=== PATIENT | male | born 1970 | race Caucasian/White ===

== ENCOUNTER 2017-06-28 13:17 | Inpatient (IN) | payer BC ==
[2017-06-28] MEDS: SODIUM CHLORIDE 0.9% 1L BAG IV* (16:31)
[2017-06-28] MEDS: CEFEPIME 1GM/50 ML (PMX) 50 ML IVPB (16:31)
[2017-06-28 17:01] LABS: ABNORMAL IP MESSAGE 1; HEMATOCRIT 28.4 % (42.0-52.0); HEMOGLOBIN 9.7 g/dl (14.0-18.0); MEAN CORPUSCULAR HEMOGLOBIN 29.4 pg (29.0-33.0); MEAN CORPUSCULAR HGB CONC 34.2 g/dl (32.0-37.0); MEAN CORPUSCULAR VOLUME 86.1 fl (82.0-101.0); MEAN PLATELET VOLUME 9.7 fl (7.4-10.4); PLATELET COUNT 456 10^3/UL (140-415); POSITIVE DIFF @See below; RED CELL DISTRIBUTION WIDTH 11.9 % (11.5-14.5)
[2017-06-28 17:01] LABS: WHITE BLOOD COUNT 34.7 10^3/ul (4.8-10.8)
[2017-06-28 17:10] LABS: ADD MAN DIFF? YES
[2017-06-28] MEDS: VANCOMYCIN 1 GM (PMX) 250 ML IVPB ×2 (17:15→20:22)
[2017-06-28 17:19] LABS: LACTIC ACID 1.3 mmol/L (0.5-2.0)
[2017-06-28 17:22] LABS: ALANINE AMINOTRANSFERASE 26 IU/L (13-69); ALBUMIN 3.4 g/dl (3.3-4.9); ALBUMIN/GLOBULIN RATIO 0.87; ALKALINE PHOSPHATASE 125 IU/L (42-121); ANION GAP 15 (8-16); ASPARTATE AMINO TRANSFERASE 23 IU/L (15-46); BILIRUBIN,INDIRECT 0.1 mg/dl (0-1.1); BILIRUBIN,TOTAL 0.1 mg/dl (0.2-1.3); BLOOD UREA NITROGEN 54 mg/dl (7-20); CALCIUM 8.3 mg/dl (8.4-10.2); CARBON DIOXIDE 23 mmol/L (21-31); CHLORIDE 100 mmol/L (97-110); CREATININE 2.99 mg/dl (0.61-1.24); GLUCOSE 282 mg/dl (70-220); POTASSIUM 4.3 mmol/L (3.5-5.1); SODIUM 134 mmol/L (135-144); TOTAL PROTEIN 7.3 g/dl (6.1-8.1)
[2017-06-28 17:24] LABS: INR 1.13; PROTIME 14.7 Sec (11.9-14.9); PT RATIO 1.1
[2017-06-28 17:25] LABS: PARTIAL THROMBOPLASTIN TIME 38.8 Sec (25.0-35.0)
[2017-06-28 17:55] LABS: C-REACTIVE PROTEIN 31.6 mg/dl (0.0-0.9)
[2017-06-28] MEDS ORDERED: ONDANSETRON 4 MG INJ IV ×2 (18:00→19:30)
[2017-06-28] MEDS ORDERED: ACETAMINOPHEN 325 MG TAB PO (18:00)
[2017-06-28 18:17] LABS: ERYTHROCYTE SEDIMENTATION RATE 140 mm/Hr (0-15)
[2017-06-28 18:37] LABS: BAND NEUTROPHILS #M 1.3 10^3/ul (0.0-0.6); BAND NEUTROPHILS % (M) 4 % (0-4); LYMPHOCYTES #M 0.6 10^3/ul (0.8-2.9); LYMPHOCYTES % (M) 2 % (15-51); MONOCYTES % (M) 6 % (0-11); PLATELET ESTIMATE NORMAL; SEGMENTED NEUTROPHILS (M) % 88 % (39-77); SMUDGE%M 1 % (0-0)
[2017-06-28] MEDS ORDERED: NA PHOSPHATE/BIPHOS 133 ML ENEMA PR (19:30)
[2017-06-28] MEDS ORDERED: VANCOMYCIN IV PER PHARMACY XX (19:30)
[2017-06-28] MEDS ORDERED: NITROGLYCERIN (SL) 0.4 MG TAB SL (19:30)
[2017-06-28] MEDS ORDERED: GLUCOSE GEL 15 GRAM TUBE BUCCAL (19:30)
[2017-06-28] MEDS ORDERED: GLUCAGON 1 MG INJ IM (19:30)
[2017-06-28] MEDS ORDERED: GLUCOSE GEL 15 GRAM TUBE PO ×2 (19:30)
[2017-06-28] MEDS ORDERED: morphine 2 MG INJ IV (19:30)
[2017-06-28] MEDS ORDERED: DEXTROSE 50% 50 ML SYRINGE IV ×2 (19:30)
[2017-06-28] MEDS ORDERED: NACL 0.9% 3 ML SYG IV (19:30)
[2017-06-28] MEDS ORDERED: HYDROCODONE/APAP (5/325) TAB PO (19:30)
[2017-06-28] MEDS ORDERED: DOCUSATE SODIUM 100 MG CAP PO (19:30)
[2017-06-28] MEDS ORDERED: LORAZEPAM 2 MG INJ IV (19:30)
[2017-06-28] MEDS ORDERED: MAGNESIUM HYDROXIDE 30ML CUP PO (19:30)
[2017-06-28] MEDS: INSULIN GLARGINE [LANtus] 3 ML PEN SC ×2 (20:00→21:33)
[2017-06-28 20:03] LABS: FREE T4 (FREE THYROXINE) 1.49 ng/dl (0.64-1.79)
[2017-06-28] MEDS: SOD CHLORIDE 0.9% 1,000 ML IV (20:22)
[2017-06-28] MEDS: ALBUTEROL/IPRATROPIUM (NEB) 3 ML AMP HHN (20:29)
[2017-06-28 20:46] LABS: PROTIME 14.4 Sec (11.9-14.9); PT RATIO 1.1
[2017-06-28 20:47] LABS: PARTIAL THROMBOPLASTIN TIME 36.4 Sec (25.0-35.0)
[2017-06-28 20:55] LABS: LACTIC ACID 1.9 mmol/L (0.5-2.0)
[2017-06-28] MEDS: INSULIN ASPART [NOVOLOG] 3 ML PEN SC (21:34)
[2017-06-28] MEDS: HEPARIN 5,000 UNIT/0.5 ML VIAL SC (21:35)
[2017-06-28] MEDS: CALCIUM CARBONATE 500 MG CHEW TAB PO (21:56)
[2017-06-29] MEDS: PIPER-TAZO 3.375 GM IV (PMX) 50 ML IVPB ×4 (00:33→17:33)
[2017-06-29] MEDS: INSULIN ASPART [NOVOLOG] 3 ML PEN SC ×6 (00:36→21:23)
[2017-06-29 01:27] LABS: ADD UMIC YES; UR AMORPHOUS CRYSTAL FEW /HPF (NONE SEEN); UR ASCORBIC ACID NEGATIVE (NEGATIVE); UR BACTERIA FEW /HPF (NONE SEEN); UR BILIRUBIN (Dip) NEGATIVE (NEGATIVE); UR BLOOD (Dip) 2+ mg/dL (NEGATIVE); UR CLARITY CLOUDY (CLEAR); UR COLOR YELLOW (YELLOW); UR GLUCOSE (Dip) 2+ mg/dL (NEGATIVE); UR KETONES (Dip) NEGATIVE (NEGATIVE); UR LEUKOCYTE ESTERASE (Dip) NEGATIVE Leu/ul (NEGATIVE); UR MUCUS FEW /HPF (NONE SEEN); UR NITRITE (Dip) NEGATIVE (NEGATIVE); UR RBC 25 /HPF (0-5); UR SPECIFIC GRAVITY (Dip) 1.014 (1.003-1.030); UR TOTAL PROTEIN (Dip) 3+ mg/dl (NEGATIVE); UR UROBILINOGEN (Dip) NEGATIVE (NEGATIVE); UR WBC 5 /HPF (0-5)
[2017-06-29] MEDS: ACCU-CHEK XX (01:28)
[2017-06-29] MEDS: SOD CHLORIDE 0.9% 1,000 ML IV ×2 (04:53→15:17)
[2017-06-29] MEDS: PANTOPRAZOLE (EC) 40 MG TAB PO (05:31)
[2017-06-29 05:39] LABS: ADD MAN DIFF? NO
[2017-06-29 05:43] LABS: ABNORMAL IP MESSAGE 1; BASOPHIL # 0.1 10^3/ul (0.0-0.1); BASOPHILS % 0.2 % (0.0-2.0); EOSINOPHILS % 0.1 % (0.0-7.0); HEMATOCRIT 25.5 % (42.0-52.0); HEMOGLOBIN 8.7 g/dl (14.0-18.0); LYMPHOCYTES # 1.9 10^3/ul (0.8-2.9); LYMPHOCYTES % 6.8 % (15.0-51.0); MEAN CORPUSCULAR HEMOGLOBIN 29.6 pg (29.0-33.0); MEAN CORPUSCULAR HGB CONC 34.1 g/dl (32.0-37.0); MEAN CORPUSCULAR VOLUME 86.7 fl (82.0-101.0); MEAN PLATELET VOLUME 9.3 fl (7.4-10.4); MONOCYTE # 2.1 10^3/ul (0.3-0.9); MONOCYTES % 7.7 % (0.0-11.0); NEUTROPHIL # 22.7 10^3/ul (1.6-7.5); NEUTROPHILS % 83.7 % (39.0-77.0); PLATELET COUNT 405 10^3/UL (140-415); POSITIVE DIFF @See below; RED BLOOD COUNT 2.94 10^6/ul (4.70-6.10); RED CELL DISTRIBUTION WIDTH 11.9 % (11.5-14.5)
[2017-06-29 05:43] LABS: WHITE BLOOD COUNT 27.2 10^3/ul (4.8-10.8)
[2017-06-29 06:30] LABS: ANION GAP 16 (8-16); BLOOD UREA NITROGEN 52 mg/dl (7-20); CALCIUM 7.9 mg/dl (8.4-10.2); CARBON DIOXIDE 25 mmol/L (21-31); CHLORIDE 106 mmol/L (97-110); CREATININE 2.86 mg/dl (0.61-1.24); GLUCOSE 133 mg/dl (70-220); MAGNESIUM 2.2 mg/dl (1.7-2.5); PHOSPHORUS 3.7 mg/dl (2.5-4.9); POTASSIUM 3.9 mmol/L (3.5-5.1); SODIUM 143 mmol/L (135-144)
[2017-06-29 06:41] LABS: CHOL/HDL RATIO 4.1 RATIO; HDL CHOLESTEROL 25 mg/dl (27-67); LDL CHOLESTEROL,CALCULATED 50 mg/dl; TRIGLYCERIDES 138 mg/dl (0-149)
[2017-06-29 06:41] LABS: CHOLESTEROL 103 mg/dl (100-200)
[2017-06-29 06:46] LABS: HEMOGLOBIN A1C 10.3 % (0-5.9)
[2017-06-29] MEDS: HEPARIN 5,000 UNIT/0.5 ML VIAL SC ×2 (09:00→21:25)
[2017-06-29] MEDS ORDERED: LIDOCAINE 1% (MPF) 30 ML INJ (12:06)
[2017-06-29] MEDS ORDERED: BUPIVACAINE 0.25% (MPF) 30 ML INJ (12:07)
[2017-06-29] MEDS ORDERED: BACITRACIN 50000 UNITS INJ (12:08)
[2017-06-29] MEDS ORDERED: LIDOCAINE 2% (SDV) 5 ML INJ (12:18)
[2017-06-29] MEDS ORDERED: PROPOFOL 20 ML (12:18)
[2017-06-29] MEDS ORDERED: FENTAnyl 50 MCG/ML VIAL IV ×3 (12:30)
[2017-06-29] MEDS ORDERED: ONDANSETRON 4 MG INJ IV (12:30)
[2017-06-29] MEDS ORDERED: LABETALOL HCL 20MG INJ IV (12:30)
[2017-06-29] MEDS ORDERED: MEPERIDINE 25 MG INJ IV (12:30)
[2017-06-29] MEDS ORDERED: METOCLOPRAMIDE 10 MG INJ IV (12:30)
[2017-06-29] MEDS ORDERED: MIDAZOLAM 1 MG/ML 2 ML INJ IV (12:30)
[2017-06-29] MEDS ORDERED: OXYCODONE/ACETAMINOPHEN (5/325) TAB PO ×2 (12:30)
[2017-06-29] MEDS ORDERED: DIPHENHYDRAMINE 50 MG INJ IV (12:30)
[2017-06-29] MEDS ORDERED: HYDROmorphONE (0.2 MG/ML) 10ML SYG IV ×3 (12:30)
[2017-06-29] MEDS ORDERED: EPHEDrine SULFATE 50 MG/5 ML SYG IV (12:30)
[2017-06-29] MEDS ORDERED: hydrALAzine 20 MG INJ IV (12:30)
[2017-06-29] MEDS: ACETAMINOPHEN 325 MG TAB PO (17:37)
[2017-06-29] MEDS: INSULIN GLARGINE [LANtus] 3 ML PEN SC (21:22)
[2017-06-30] MEDS: PIPER-TAZO 3.375 GM IV (PMX) 50 ML IVPB ×5 (00:13→23:11)
[2017-06-30] MEDS: SOD CHLORIDE 0.9% 1,000 ML IV ×3 (00:34→20:18)
[2017-06-30] MEDS: ACCU-CHEK XX (01:46)
[2017-06-30] MEDS: PANTOPRAZOLE (EC) 40 MG TAB PO (05:33)
[2017-06-30 06:48] LABS: ADD MAN DIFF? NO
[2017-06-30 06:53] LABS: BASOPHIL # 0.1 10^3/ul (0.0-0.1); BASOPHILS % 0.3 % (0.0-2.0); EOSINOPHILS # 0.2 10^3/ul (0.0-0.5); EOSINOPHILS % 1.3 % (0.0-7.0); HEMATOCRIT 24.6 % (42.0-52.0); HEMOGLOBIN 8.3 g/dl (14.0-18.0); LYMPHOCYTES # 1.8 10^3/ul (0.8-2.9); LYMPHOCYTES % 9.8 % (15.0-51.0); MEAN CORPUSCULAR HEMOGLOBIN 29.2 pg (29.0-33.0); MEAN CORPUSCULAR HGB CONC 33.7 g/dl (32.0-37.0); MEAN CORPUSCULAR VOLUME 86.6 fl (82.0-101.0); MEAN PLATELET VOLUME 9.7 fl (7.4-10.4); MONOCYTE # 1.4 10^3/ul (0.3-0.9); MONOCYTES % 7.8 % (0.0-11.0); NEUTROPHIL # 14.6 10^3/ul (1.6-7.5); NEUTROPHILS % 79.7 % (39.0-77.0); PLATELET COUNT 386 10^3/UL (140-415); RED BLOOD COUNT 2.84 10^6/ul (4.70-6.10); RED CELL DISTRIBUTION WIDTH 12.1 % (11.5-14.5)
[2017-06-30 06:53] LABS: WHITE BLOOD COUNT 18.3 10^3/ul (4.8-10.8)
[2017-06-30 07:38] LABS: ANION GAP 14 (8-16); BLOOD UREA NITROGEN 44 mg/dl (7-20); CALCIUM 7.5 mg/dl (8.4-10.2); CARBON DIOXIDE 23 mmol/L (21-31); CHLORIDE 107 mmol/L (97-110); CREATININE 2.57 mg/dl (0.61-1.24); GLUCOSE 134 mg/dl (70-220); POTASSIUM 3.8 mmol/L (3.5-5.1); SODIUM 140 mmol/L (135-144)
[2017-06-30 07:38] LABS: PHOSPHORUS 3.7 mg/dl (2.5-4.9)
[2017-06-30 07:39] LABS: VANCOMYCIN,RANDOM 9.6 ug/ml
[2017-06-30] MEDS: INSULIN ASPART [NOVOLOG] 3 ML PEN SC ×5 (08:00→20:25)
[2017-06-30] MEDS: HEPARIN 5,000 UNIT/0.5 ML VIAL SC ×2 (09:13→20:26)
[2017-06-30] MEDS: VANCOMYCIN 1.25 GM in SODIUM CHLORIDE 0.45 % 250 ML IVPB (13:26)
[2017-06-30] MEDS: INSULIN GLARGINE [LANtus] 3 ML PEN SC (20:26)
[2017-06-30] MEDS: CEPASTAT LOZENGE MT (22:42)
[2017-07-01] MEDS: ACCU-CHEK XX (01:55)
[2017-07-01] MEDS: PIPER-TAZO 3.375 GM IV (PMX) 50 ML IVPB (05:26)
[2017-07-01] MEDS: SOD CHLORIDE 0.9% 1,000 ML IV (05:26)
[2017-07-01] MEDS: PANTOPRAZOLE (EC) 40 MG TAB PO (05:26)
[2017-07-01 05:51] LABS: ADD MAN DIFF? NO
[2017-07-01 05:56] LABS: WHITE BLOOD COUNT 16.3 10^3/ul (4.8-10.8)
[2017-07-01 05:56] LABS: BASOPHIL # 0.1 10^3/ul (0.0-0.1); BASOPHILS % 0.5 % (0.0-2.0); EOSINOPHILS # 0.6 10^3/ul (0.0-0.5); EOSINOPHILS % 3.7 % (0.0-7.0); HEMATOCRIT 26.9 % (42.0-52.0); HEMOGLOBIN 9.1 g/dl (14.0-18.0); LYMPHOCYTES # 2.8 10^3/ul (0.8-2.9); LYMPHOCYTES % 16.9 % (15.0-51.0); MEAN CORPUSCULAR HEMOGLOBIN 29.5 pg (29.0-33.0); MEAN CORPUSCULAR HGB CONC 33.8 g/dl (32.0-37.0); MEAN CORPUSCULAR VOLUME 87.3 fl (82.0-101.0); MEAN PLATELET VOLUME 9.7 fl (7.4-10.4); MONOCYTE # 1.4 10^3/ul (0.3-0.9); MONOCYTES % 8.5 % (0.0-11.0); NEUTROPHIL # 11.1 10^3/ul (1.6-7.5); NEUTROPHILS % 68.1 % (39.0-77.0); PLATELET COUNT 440 10^3/UL (140-415); RED BLOOD COUNT 3.08 10^6/ul (4.70-6.10)
[2017-07-01 06:54] LABS: ANION GAP 14 (8-16); BLOOD UREA NITROGEN 36 mg/dl (7-20); CALCIUM 7.9 mg/dl (8.4-10.2); CARBON DIOXIDE 23 mmol/L (21-31); CHLORIDE 107 mmol/L (97-110); CREATININE 2.35 mg/dl (0.61-1.24); GLUCOSE 153 mg/dl (70-220); POTASSIUM 4.2 mmol/L (3.5-5.1); SODIUM 140 mmol/L (135-144)
[2017-07-01] MEDS: INSULIN ASPART [NOVOLOG] 3 ML PEN SC ×7 (08:06→20:41)
[2017-07-01] MEDS: HEPARIN 5,000 UNIT/0.5 ML VIAL SC ×2 (08:38→20:31)
[2017-07-01] MEDS ORDERED: CEFAZOLIN 1 GM INJ IVPB (12:00)
[2017-07-01] MEDS: CEFAZOLIN 1 GM/50 ML (PMX) 50 ML IVPB ×2 (14:11→21:50)
[2017-07-01] MEDS: LEVOFLOXACIN 750 MG TABLET PO (14:11)
[2017-07-01 15:21] LABS: PHOSPHORUS 3.4 mg/dl (2.5-4.9)
[2017-07-01 15:24] LABS: IRON 40 ug/dl (35-150)
[2017-07-01 15:34] LABS: % IRON SATURATION 26 % SAT (22-52); TOTAL IRON BINDING CAPACITY 155 ug/dl (241-421)
[2017-07-01] MEDS: INSULIN GLARGINE [LANtus] 3 ML PEN SC (20:40)
[2017-07-01] MEDS: DEXTROSE 5%-0.45% NACL 1,000 ML IV (23:54)
[2017-07-02] MEDS: ACCU-CHEK XX (02:00)
[2017-07-02] MEDS ORDERED: INSULIN ASPART [NOVOLOG] 3 ML PEN SC (02:10)
[2017-07-02] MEDS: CEFAZOLIN 1 GM/50 ML (PMX) 50 ML IVPB ×3 (05:39→22:08)
[2017-07-02] MEDS: PANTOPRAZOLE (EC) 40 MG TAB PO (05:43)
[2017-07-02 06:50] LABS: ADD MAN DIFF? NO
[2017-07-02 06:57] LABS: BASOPHIL # 0.1 10^3/ul (0.0-0.1); BASOPHILS % 0.4 % (0.0-2.0); EOSINOPHILS # 0.5 10^3/ul (0.0-0.5); EOSINOPHILS % 3.8 % (0.0-7.0); HEMATOCRIT 25.8 % (42.0-52.0); HEMOGLOBIN 8.7 g/dl (14.0-18.0); LYMPHOCYTES # 2.5 10^3/ul (0.8-2.9); LYMPHOCYTES % 17.6 % (15.0-51.0); MEAN CORPUSCULAR HEMOGLOBIN 29.2 pg (29.0-33.0); MEAN CORPUSCULAR HGB CONC 33.7 g/dl (32.0-37.0); MEAN CORPUSCULAR VOLUME 86.6 fl (82.0-101.0); MEAN PLATELET VOLUME 9.6 fl (7.4-10.4); MONOCYTE # 1.2 10^3/ul (0.3-0.9); MONOCYTES % 8.8 % (0.0-11.0); NEUTROPHIL # 9.2 10^3/ul (1.6-7.5); NEUTROPHILS % 65.6 % (39.0-77.0); PLATELET COUNT 457 10^3/UL (140-415); RED BLOOD COUNT 2.98 10^6/ul (4.70-6.10); RED CELL DISTRIBUTION WIDTH 11.8 % (11.5-14.5)
[2017-07-02 06:57] LABS: WHITE BLOOD COUNT 14.1 10^3/ul (4.8-10.8)
[2017-07-02 07:28] LABS: ANION GAP 11 (8-16); BLOOD UREA NITROGEN 33 mg/dl (7-20); CARBON DIOXIDE 24 mmol/L (21-31); CHLORIDE 106 mmol/L (97-110); CREATININE 2.01 mg/dl (0.61-1.24); GLUCOSE 132 mg/dl (70-220); POTASSIUM 4.2 mmol/L (3.5-5.1); SODIUM 137 mmol/L (135-144)
[2017-07-02] MEDS: INSULIN ASPART [NOVOLOG] 3 ML PEN SC ×7 (07:35→20:38)
[2017-07-02] MEDS: hydrALAzine 20 MG INJ IV (08:17)
[2017-07-02] MEDS: HEPARIN 5,000 UNIT/0.5 ML VIAL SC (08:19)
[2017-07-02] MEDS: ACETAMINOPHEN 325 MG TAB PO ×2 (11:09→22:12)
[2017-07-02] MEDS ORDERED: LIDOCAINE 1% (MPF) 5 ML VIAL SC (11:30)
[2017-07-02 16:25] LABS: COLLECTION PERIOD 24 hrs
[2017-07-02 16:26] LABS: PTH CALCIUM 7.6 mg/dL (8.6-10.3)
[2017-07-02] MEDS: DEXTROSE 5%-0.45% NACL 1,000 ML IV (16:40)
[2017-07-02 17:04] LABS: CREATININE,URINE RANDOM 59.76 mg/dl (20-370)
[2017-07-02 17:10] LABS: COLLECTION PERIOD 24 hrs; CREATININE CLEARANCE 25.2 mls/min (84.0-162.0); SCRET 2.01 mg/dl (0.61-1.24); VOLUME 1220 ml/24hrs
[2017-07-02 17:11] LABS: 24HR URINE TOTAL PROTEIN 1964.2 mg/24hrs (42.0-225.0); VOLUME 1220 mls
[2017-07-02] MEDS: INSULIN GLARGINE [LANtus] 3 ML PEN SC (20:46)
[2017-07-03] MEDS: DEXTROSE 5%-0.45% NACL 1,000 ML IV (00:11)
[2017-07-03] MEDS: ACCU-CHEK XX (02:00)
[2017-07-03] MEDS: CEFAZOLIN 1 GM/50 ML (PMX) 50 ML IVPB ×3 (05:36→21:02)
[2017-07-03] MEDS: PANTOPRAZOLE (EC) 40 MG TAB PO (06:00)
[2017-07-03 07:17] LABS: ADD MAN DIFF? NO
[2017-07-03 07:25] LABS: BASOPHIL # 0.1 10^3/ul (0.0-0.1); BASOPHILS % 0.5 % (0.0-2.0); EOSINOPHILS # 0.5 10^3/ul (0.0-0.5); EOSINOPHILS % 4.2 % (0.0-7.0); HEMATOCRIT 27.9 % (42.0-52.0); HEMOGLOBIN 9.4 g/dl (14.0-18.0); LYMPHOCYTES # 2.4 10^3/ul (0.8-2.9); LYMPHOCYTES % 19.1 % (15.0-51.0); MEAN CORPUSCULAR HGB CONC 33.7 g/dl (32.0-37.0); MEAN CORPUSCULAR VOLUME 86.1 fl (82.0-101.0); MEAN PLATELET VOLUME 9.1 fl (7.4-10.4); MONOCYTE # 1.2 10^3/ul (0.3-0.9); NEUTROPHIL # 7.7 10^3/ul (1.6-7.5); NEUTROPHILS % 62.1 % (39.0-77.0); PLATELET COUNT 466 10^3/UL (140-415); RED BLOOD COUNT 3.24 10^6/ul (4.70-6.10); RED CELL DISTRIBUTION WIDTH 11.8 % (11.5-14.5)
[2017-07-03 07:25] LABS: WHITE BLOOD COUNT 12.3 10^3/ul (4.8-10.8)
[2017-07-03] MEDS: INSULIN ASPART [NOVOLOG] 3 ML PEN SC ×8 (07:35→21:10)
[2017-07-03 07:45] LABS: ANION GAP 11 (8-16); BLOOD UREA NITROGEN 25 mg/dl (7-20); CALCIUM 8.4 mg/dl (8.4-10.2); CARBON DIOXIDE 25 mmol/L (21-31); CHLORIDE 105 mmol/L (97-110); CREATININE 1.84 mg/dl (0.61-1.24); GLUCOSE 155 mg/dl (70-220); SODIUM 137 mmol/L (135-144)
[2017-07-03 08:20] LABS: PTH INTACT 89 pg/mL (14-64)
[2017-07-03] MEDS: hydrALAzine 20 MG INJ IV (09:09)
[2017-07-03] MEDS ORDERED: POLYMYXIN/BACITRACIN 1L IRRIG (11:53)
[2017-07-03] MEDS ORDERED: PROPOFOL 20 ML (11:58)
[2017-07-03] MEDS ORDERED: FENTAnyl 50 MCG/ML VIAL (11:58)
[2017-07-03] MEDS ORDERED: MIDAZOLAM 1 MG/ML 2 ML INJ (11:58)
[2017-07-03] MEDS ORDERED: ROPIVACAINE 0.5 % 30 ML VIAL ×2 (11:59→12:13)
[2017-07-03] MEDS ORDERED: LIDOCAINE 2% (MDV) 20 ML INJ (11:59)
[2017-07-03] MEDS ORDERED: BUPIVACAINE 0.5% (SDV) 30 ML INJ (11:59)
[2017-07-03] MEDS ORDERED: BACITRACIN 50000 UNITS INJ (12:13)
[2017-07-03] MEDS ORDERED: CEFAZOLIN 1 GM INJ (12:20)
[2017-07-03] MEDS ORDERED: PHENYLephrine (100 MCG/ML) 5ML SYG (12:20)
[2017-07-03] MEDS: POLYMYXIN/BACITRACIN 1L IRRIG IRR (12:38)
[2017-07-03] MEDS ORDERED: OXYCODONE/ACETAMINOPHEN (5/325) TAB PO ×2 (13:00)
[2017-07-03] MEDS ORDERED: HYDROmorphONE (0.2 MG/ML) 10ML SYG IV ×3 (13:00)
[2017-07-03] MEDS ORDERED: FENTAnyl 50 MCG/ML VIAL IV ×3 (13:00)
[2017-07-03] MEDS ORDERED: ONDANSETRON 4 MG INJ IV (13:00)
[2017-07-03] MEDS ORDERED: EPHEDrine SULFATE 50 MG/5 ML SYG IV (13:00)
[2017-07-03] MEDS ORDERED: DIPHENHYDRAMINE 50 MG INJ IV (13:00)
[2017-07-03] MEDS ORDERED: METOCLOPRAMIDE 10 MG INJ IV (13:00)
[2017-07-03] MEDS ORDERED: MEPERIDINE 25 MG INJ IV (13:00)
[2017-07-03] MEDS ORDERED: ONDANSETRON 4 MG INJ (13:01)
[2017-07-03] MEDS ORDERED: METOCLOPRAMIDE 10 MG INJ (13:01)
[2017-07-03] MEDS ORDERED: DEXAMETHASONE 4 MG/ML 1 ML INJ (13:01)
[2017-07-03] MEDS ORDERED: KETOROLAC 30 MG INJ (13:01)
[2017-07-03] MEDS: LEVOFLOXACIN 750 MG TABLET PO (14:39)
[2017-07-03] MEDS: INSULIN GLARGINE [LANtus] 3 ML PEN SC (21:01)
[2017-07-04] MEDS: ACCU-CHEK XX ×2 (01:43→22:47)
[2017-07-04] MEDS: PANTOPRAZOLE (EC) 40 MG TAB PO (05:35)
[2017-07-04] MEDS: CEFAZOLIN 1 GM/50 ML (PMX) 50 ML IVPB ×3 (05:36→20:48)
[2017-07-04 06:42] LABS: ADD MAN DIFF? NO
[2017-07-04 06:55] LABS: WHITE BLOOD COUNT 15.4 10^3/ul (4.8-10.8)
[2017-07-04 06:55] LABS: BASOPHIL # 0.1 10^3/ul (0.0-0.1); BASOPHILS % 0.3 % (0.0-2.0); EOSINOPHILS # 0.4 10^3/ul (0.0-0.5); EOSINOPHILS % 2.3 % (0.0-7.0); HEMATOCRIT 25.9 % (42.0-52.0); LYMPHOCYTES # 3.3 10^3/ul (0.8-2.9); LYMPHOCYTES % 21.5 % (15.0-51.0); MEAN CORPUSCULAR HEMOGLOBIN 29.6 pg (29.0-33.0); MEAN CORPUSCULAR HGB CONC 34.7 g/dl (32.0-37.0); MEAN CORPUSCULAR VOLUME 85.2 fl (82.0-101.0); MEAN PLATELET VOLUME 9.2 fl (7.4-10.4); MONOCYTE # 1.2 10^3/ul (0.3-0.9); MONOCYTES % 7.8 % (0.0-11.0); NEUTROPHIL # 10.1 10^3/ul (1.6-7.5); NEUTROPHILS % 65.7 % (39.0-77.0); PLATELET COUNT 455 10^3/UL (140-415); RED BLOOD COUNT 3.04 10^6/ul (4.70-6.10); RED CELL DISTRIBUTION WIDTH 11.9 % (11.5-14.5)
[2017-07-04 07:12] LABS: ANION GAP 12 (8-16); BLOOD UREA NITROGEN 28 mg/dl (7-20); CALCIUM 7.9 mg/dl (8.4-10.2); CARBON DIOXIDE 25 mmol/L (21-31); CHLORIDE 104 mmol/L (97-110); CREATININE 2.08 mg/dl (0.61-1.24); GLUCOSE 172 mg/dl (70-220); SODIUM 137 mmol/L (135-144)
[2017-07-04] MEDS: INSULIN ASPART [NOVOLOG] 3 ML PEN SC ×7 (08:50→20:46)
[2017-07-04] MEDS: BENAZEPRIL 5 MG TAB PO (13:30)
[2017-07-04] MEDS: SOD CHLORIDE 0.9% 100 ML (14:00)
[2017-07-04] MEDS: CALCIUM CARBONATE 500 MG CHEW TAB PO ×2 (14:19→18:51)
[2017-07-04] MEDS: INSULIN GLARGINE [LANtus] 3 ML PEN SC (20:48)
[2017-07-04] MEDS: FERROUS GLUCONATE (EC) 325 MG TAB PO (21:30)
[2017-07-04] MEDS: EPOETIN ALFA (NESRD) 3,000 UNITS/ML VIAL SC (21:30)
[2017-07-05] MEDS: PANTOPRAZOLE (EC) 40 MG TAB PO (06:00)
[2017-07-05] MEDS: CEFAZOLIN 1 GM/50 ML (PMX) 50 ML IVPB ×2 (06:02→14:43)
[2017-07-05 06:38] LABS: ADD MAN DIFF? NO
[2017-07-05 06:43] LABS: WHITE BLOOD COUNT 13.3 10^3/ul (4.8-10.8)
[2017-07-05 06:43] LABS: BASOPHIL # 0.1 10^3/ul (0.0-0.1); BASOPHILS % 0.5 % (0.0-2.0); EOSINOPHILS # 0.6 10^3/ul (0.0-0.5); EOSINOPHILS % 4.8 % (0.0-7.0); HEMATOCRIT 27.6 % (42.0-52.0); HEMOGLOBIN 9.2 g/dl (14.0-18.0); LYMPHOCYTES # 2.9 10^3/ul (0.8-2.9); LYMPHOCYTES % 21.9 % (15.0-51.0); MEAN CORPUSCULAR HEMOGLOBIN 29.2 pg (29.0-33.0); MEAN CORPUSCULAR HGB CONC 33.3 g/dl (32.0-37.0); MEAN CORPUSCULAR VOLUME 87.6 fl (82.0-101.0); MEAN PLATELET VOLUME 9.1 fl (7.4-10.4); MONOCYTE # 1.1 10^3/ul (0.3-0.9); MONOCYTES % 7.9 % (0.0-11.0); NEUTROPHIL # 8.3 10^3/ul (1.6-7.5); NEUTROPHILS % 62.6 % (39.0-77.0); PLATELET COUNT 500 10^3/UL (140-415); RED BLOOD COUNT 3.15 10^6/ul (4.70-6.10)
[2017-07-05 07:15] LABS: ANION GAP 13 (8-16); BLOOD UREA NITROGEN 29 mg/dl (7-20); CALCIUM 8.3 mg/dl (8.4-10.2); CARBON DIOXIDE 25 mmol/L (21-31); CHLORIDE 104 mmol/L (97-110); CREATININE 1.97 mg/dl (0.61-1.24); GLUCOSE 148 mg/dl (70-220); POTASSIUM 4.4 mmol/L (3.5-5.1); SODIUM 138 mmol/L (135-144)
[2017-07-05] MEDS: INSULIN ASPART [NOVOLOG] 3 ML PEN SC ×4 (08:26→12:09)
[2017-07-05] MEDS: CALCIUM CARBONATE 500 MG CHEW TAB PO ×3 (08:27→12:11)
[2017-07-05] MEDS: FERROUS GLUCONATE (EC) 325 MG TAB PO (08:27)
[2017-07-05] MEDS: BENAZEPRIL 5 MG TAB PO (08:45)
[2017-07-05] MEDS: LEVOFLOXACIN 750 MG TABLET PO (14:43)
[2017-07-06] MEDS ORDERED: BENAZEPRIL 20 MG TAB PO (09:00)
[2017-07-06] MEDS ORDERED: EPOETIN ALFA (NESRD) 3,000 UNITS/ML VIAL SC (17:00)
== END 2017-07-05 15:52 | disposition home health service (06) | DRG 854 ==
LOC: E/R 13:17 → PP2 17:33
PROC: 02HV33Z Insertion of Infusion Device into Superior Vena Cava, Percutaneous Approach (ICD-10-PCS; principal; 2017-06-29 12:20)
PROC: 0Y6P0Z0 Detachment at Right 1st Toe, Complete, Open Approach (ICD-10-PCS; 2017-06-29 12:20)
PROC: 0QTN0ZZ Resection of Right Metatarsal, Open Approach (ICD-10-PCS; 2017-06-29 12:20)
PROC: 0Q9Q0ZX Drainage of Right Toe Phalanx, Open Approach, Diagnostic (ICD-10-PCS; 2017-06-29 12:20)
DX: A41.01 Sepsis due to Methicillin susceptible Staphylococcus aureus (principal); N17.9 Acute kidney failure, unspecified; I96 Gangrene, not elsewhere classified; E11.52 Type 2 diabetes mellitus with diabetic peripheral angiopathy with gangrene; M86.9 Osteomyelitis, unspecified; E87.1 Hypo-osmolality and hyponatremia; E11.21 Type 2 diabetes mellitus with diabetic nephropathy; E11.42 Type 2 diabetes mellitus with diabetic polyneuropathy; E11.69 Type 2 diabetes mellitus with other specified complication; E11.65 Type 2 diabetes mellitus with hyperglycemia; E11.22 Type 2 diabetes mellitus with diabetic chronic kidney disease; E11.621 Type 2 diabetes mellitus with foot ulcer; L03.031 Cellulitis of right toe; Z89.421 Acquired absence of other right toe(s); I12.9 Hypertensive chronic kidney disease with stage 1 through stage 4 chronic kidney disease, or unspecified chronic kidney disease; N18.9 Chronic kidney disease, unspecified; D63.8 Anemia in other chronic diseases classified elsewhere; R65.20 Severe sepsis without septic shock; E66.9 Obesity, unspecified; Z68.38 Body mass index [BMI] 38.0-38.9, adult
CPT/HCPCS: 36415; 36569; 70360; 71045; 73620; 73630; 73718; 76775; 76937; 80048; 80053; 80061; 80202; 81001; 82575; 82962; 83036; 83540; 83605; 83735; 83970; 84100; 84156; 84439; 84443; 85025; 85610; 85651; 85730; 86140; 86850; 86900; 86901; 87040; 87070; 87075; 87086; 87102; 87116; 93005; 93306; 93976; 94664; 96365; 96366; 96368; 97162; 99291-25

== ENCOUNTER 2017-09-06 13:28 | Emergency (ER) | payer BC | END 2017-09-06 15:59 | disposition home or self-care (01) | LOC: FTE 13:28 | DX: Z45.2 Encounter for adjustment and management of vascular access device (principal); E11.9 Type 2 diabetes mellitus without complications; Z79.4 Long term (current) use of insulin | CPT/HCPCS: 71045; 99283-25 ==

== ENCOUNTER 2017-11-13 11:40 | Emergency (ER) | payer BC ==
[2017-11-13] MEDS: SOD CHLORIDE 0.9% 500 ML IV (12:34)
[2017-11-13] MEDS: CEFTRIAXONE 1 GM/50 ML (PMX) 50 ML IVPB (12:38)
[2017-11-13 13:02] LABS: ADD MAN DIFF? NO
[2017-11-13 13:06] LABS: BASOPHILS % 0.4 % (0.0-2.0); EOSINOPHILS # 0.2 10^3/ul (0.0-0.5); EOSINOPHILS % 1.9 % (0.0-7.0); HEMATOCRIT 31.8 % (42.0-52.0); HEMOGLOBIN 10.6 g/dl (14.0-18.0); LYMPHOCYTES # 1.7 10^3/ul (0.8-2.9); LYMPHOCYTES % 15.3 % (15.0-51.0); MEAN CORPUSCULAR HEMOGLOBIN 28.6 pg (29.0-33.0); MEAN CORPUSCULAR HGB CONC 33.3 g/dl (32.0-37.0); MEAN CORPUSCULAR VOLUME 85.7 fl (82.0-101.0); MEAN PLATELET VOLUME 9.7 fl (7.4-10.4); MONOCYTE # 0.7 10^3/ul (0.3-0.9); MONOCYTES % 6.1 % (0.0-11.0); NEUTROPHIL # 8.5 10^3/ul (1.6-7.5); NEUTROPHILS % 75.9 % (39.0-77.0); PLATELET COUNT 378 10^3/UL (140-415); RED BLOOD COUNT 3.71 10^6/ul (4.70-6.10)
[2017-11-13 13:06] LABS: WHITE BLOOD COUNT 11.2 10^3/ul (4.8-10.8)
[2017-11-13 13:25] LABS: ALANINE AMINOTRANSFERASE 23 IU/L (13-69); ALBUMIN 3.1 g/dl (3.3-4.9); ALBUMIN/GLOBULIN RATIO 0.86; ALKALINE PHOSPHATASE 96 IU/L (42-121); ANION GAP 12 (8-16); ASPARTATE AMINO TRANSFERASE 11 IU/L (15-46); BILIRUBIN,INDIRECT 0.1 mg/dl (0-1.1); BILIRUBIN,TOTAL 0.1 mg/dl (0.2-1.3); BLOOD UREA NITROGEN 53 mg/dl (7-20); CARBON DIOXIDE 28 mmol/L (21-31); CHLORIDE 104 mmol/L (97-110); CREATININE 2.86 mg/dl (0.61-1.24); GLUCOSE 391 mg/dl (70-220); POTASSIUM 5.6 mmol/L (3.5-5.1); SODIUM 138 mmol/L (135-144); TOTAL PROTEIN 6.7 g/dl (6.1-8.1)
[2017-11-13 13:36] LABS: CALCIUM 8.6 mg/dl (8.4-10.2)
[2017-11-13 13:56] LABS: C-REACTIVE PROTEIN 4.7 mg/dl (0.0-0.9)
[2017-11-13 14:51] LABS: ERYTHROCYTE SEDIMENTATION RATE 93 mm/Hr (0-15)
[2017-11-13] MEDS: SOD CHLORIDE 0.9% 1,000 ML IV (15:35)
== END 2017-11-13 17:03 | disposition home or self-care (01) ==
LOC: FTE 11:40
DX: L03.115 Cellulitis of right lower limb (principal); E11.9 Type 2 diabetes mellitus without complications; Z79.4 Long term (current) use of insulin
CPT/HCPCS: 36415; 73630; 80053; 85025; 85651; 86140; 87070; 93005; 96374; 99285-25